=== PATIENT | male | born 1965 | race Caucasian/White ===

== ENCOUNTER → 2023-12-12 13:07 | Outpatient (REF) | payer BC, SELFPAY | LOC: HWRAD 13:07 | PROVIDERS: ATTENDING PHYSICIAN Otolaryngology | DX: J32.4 Chronic pansinusitis (principal) | CPT/HCPCS: 70486 ==

== ENCOUNTER → 2024-12-14 08:52 | Outpatient (REF) | payer BC, SELFPAY | LOC: PAVMRI 08:52 | PROVIDERS: ATTENDING PHYSICIAN Physician Assistant | DX: M25.561 Pain in right knee (principal); M23.51 Chronic instability of knee, right knee | CPT/HCPCS: 73721 ==